=== PATIENT | female | born 1945 | race Caucasian/White ===

== ENCOUNTER 2018-11-18 09:37 | Day surgery (SDC) | payer MEDICARE ==
[~2018-11-18] VITALS: Ht 160 cm; Wt 58.6 kg
[2018-11-18] MEDS ORDERED: SODIUM CHLORIDE 0.9% 1,000 ML IV SCH ×2 (11:05→13:28)
[2018-11-18 11:09] VITALS: BP 152/42
[2018-11-18] MEDS ORDERED: LISI-170 PO (11:27)
[2018-11-18] MEDS ORDERED: FOLI-17 PO (11:27)
[2018-11-18] MEDS ORDERED: OXYC10TA6 PO (11:27)
[2018-11-18] MEDS ORDERED: DENO60DI SC (11:27)
[2018-11-18] MEDS ORDERED: ASCO10004 PO (11:27)
[2018-11-18] MEDS ORDERED: TEMA15CA PO (11:27)
[2018-11-18] MEDS ORDERED: METH25VI62 IM (11:27)
[2018-11-18] MEDS ORDERED: CLIN300C8 PO (11:27)
[2018-11-18] MEDS ORDERED: PRED10TA14 PO (11:27)
[2018-11-18] MEDS ORDERED: AMIT10TA PO (11:27)
[2018-11-18] MEDS ORDERED: CYAN100072 PO (11:27)
[2018-11-18] MEDS ORDERED: CHOL10003 PO (11:27)
[2018-11-18] MEDS ORDERED: HEPARIN 1,000 UNITS/ML, 10ML ONE (12:36)
[2018-11-18] MEDS ORDERED: LIDOCAINE 2%, 20ML ONE (12:36)
[2018-11-18] MEDS ORDERED: MIDAZOLAM 1 MG/ML, 2ML ONE (12:36)
[2018-11-18] MEDS ORDERED: FENTANYL PF 100 MCG/2ML ONE (12:36)
[2018-11-18] MEDS ORDERED: VERAPAMIL 2.5 MG/ML, 2ML ONE (12:44)
== END 2018-11-18 16:48 | disposition home or self-care (01) ==
LOC: CACL 09:37
PROVIDERS: ATTEND Internal Medicine Cardiovascular Disease
DX: I25.10 Atherosclerotic heart disease of native coronary artery without angina pectoris (principal); I35.0 Nonrheumatic aortic (valve) stenosis; I10 Essential (primary) hypertension; M06.842 Other specified rheumatoid arthritis, left hand; M06.841 Other specified rheumatoid arthritis, right hand; Z88.0 Allergy status to penicillin; Z88.8 Allergy status to other drugs, medicaments and biological substances; Z88.1 Allergy status to other antibiotic agents; Z79.899 Other long term (current) drug therapy; Z79.82 Long term (current) use of aspirin
CPT/HCPCS: 93454; 99156; C1769; C1894; J1644; J2250; J3010; Q9967

== ENCOUNTER 2018-11-30 09:52 | Outpatient (CLI) | payer MEDICARE ==
[~2018-11-30 09:52] MED LIST: AMIT10TA PO; ASCO10004 PO; CHOL10003 PO; CLIN300C8 PO; CYAN100072 PO; DENO60DI SC; FOLI-17 PO; LISI-170 PO; METH25VI62 IM; OXYC10TA6 PO; PRED10TA14 PO; TEMA15CA PO
[2018-11-30] MEDS ORDERED: METOPROLOL 1 MG/ML, 5ML ONE (10:51)
[2018-11-30] MEDS ORDERED: VISIPAQUE 320 MG/ML, 150ML BOTTLE ONE (11:27)
== END 2018-11-30 23:59 | disposition home or self-care (01) ==
LOC: RAD 09:52
PROVIDERS: ATTEND Internal Medicine Cardiovascular Disease
DX: I65.23 Occlusion and stenosis of bilateral carotid arteries (principal); I70.0 Atherosclerosis of aorta; J84.9 Interstitial pulmonary disease, unspecified; I71.4 Abdominal aortic aneurysm, without rupture; M51.36 Other intervertebral disc degeneration, lumbar region; M41.86 Other forms of scoliosis, lumbar region; I10 Essential (primary) hypertension; Z88.0 Allergy status to penicillin; Z88.6 Allergy status to analgesic agent; Z88.5 Allergy status to narcotic agent; Z88.8 Allergy status to other drugs, medicaments and biological substances
CPT/HCPCS: 71275; 74174; 93880; 94010; 94726; 94729; Q9967

== ENCOUNTER 2018-12-20 08:00 | Inpatient (IN) | payer MEDICARE ==
[~2018-12-20] VITALS: Ht 160 cm; Wt 58.6 kg
[2018-12-20] MEDS ORDERED: SODIUM CHLORIDE 0.9% 1,000 ML IV ONE (10:13)
[2018-12-20 10:21] VITALS: BP 151/53
[2018-12-20] MEDS ORDERED: CHLORHEXIDINE 15 ML UDC MM PRN (10:30)
[2018-12-20] MEDS ORDERED: ONDANSETRON 2MG/ML, 2ML IVPush PRN (10:30)
[2018-12-20] MEDS ORDERED: PLEASE ENTER HEIGHT AND WEIGHT MC SCH (10:30)
[2018-12-20 10:36] LABS: BASOPHILS # (AUTO) 0.01 x10^3/uL (0-0.1); BASOPHILS % (AUTO) 0 % (0-1); EOSINOPHILS # (AUTO) 0.13 x10^3/uL (0-0.4); EOSINOPHILS % (AUTO) 2 % (1-7); LYMPHOCYTES # (AUTO) 0.44 x10^3/uL (1-3.4); LYMPHOCYTES % (AUTO) 6 % (22-44); MD NO; MEAN CORPUSCULAR HEMOGLOBIN 34.2 pg (27.0-34.8); MEAN CORPUSCULAR HGB CONC 33.2 g/dL (32.4-35.8); MEAN CORPUSCULAR VOLUME 103.3 fL (80-100); MEAN PLATELET VOLUME 6.5 fL (7.4-10.4); MONOCYTES # (AUTO) 0.12 x10^3/uL (0.2-0.8); MONOCYTES % (AUTO) 2 % (2-9); NEUTROPHILS # (AUTO) 6.61 x10^3/uL (1.8-6.8); NEUTROPHILS % (AUTO) 90 % (42-75); PLATELET COUNT 233 x10^3/uL (130-400); RED BLOOD COUNT 3.04 x10^6/uL (3.82-5.3); RED CELL DISTRIBUTION WIDTH 14.9 % (9.6-15.2)
[2018-12-20 10:42] LABS: INTERNATIONAL NORMALIZED RATIO 0.94 (0.93-1.1); PROTHROMBIN TIME 9.9 Seconds (9.6-11.5)
[2018-12-20 10:44] LABS: ALANINE AMINOTRANSFERASE 12 U/L (12-78); ALBUMIN 3.1 g/dL (3.4-5.0); ANION GAP 10 mmol/L (5-15); CALCIUM 8.4 mg/dL (8.5-10.1); CHLORIDE 110 mmol/L (98-107); CREATININE 0.95 mg/dL (0.55-1.02)
[2018-12-20 10:48] LABS: ALKALINE PHOSPHATASE 65 U/L (45-117); BILIRUBIN,TOTAL 0.4 mg/dL (0.2-1.0); TOTAL PROTEIN 6.3 g/dL (6.4-8.2)
[2018-12-20] MEDS ORDERED: GOLD325C2 PO (11:03)
[2018-12-20] MEDS ORDERED: Iron PO (11:03)
[2018-12-20] MEDS ORDERED: ECHI350C PO (11:03)
[2018-12-20] MEDS ORDERED: ORENCIA IV (11:03)
[2018-12-20] MEDS ORDERED: DOCU-144 PO (11:04)
[2018-12-20] MEDS ORDERED: POLY17PO5 PO (11:04)
[2018-12-20] MEDS ORDERED: FENTANYL PF 250 MCG/5ML ONE (12:02)
[2018-12-20] MEDS ORDERED: ONDANSETRON 2MG/ML, 2ML ONE (12:03)
[2018-12-20] MEDS ORDERED: DEXAMETHASONE 4 MG/ML, 1ML ONE ×2 (12:03→13:14)
[2018-12-20] MEDS ORDERED: ROCURONIUM 10MG/ML,5ML ONE (13:14)
[2018-12-20] MEDS ORDERED: SUCCINYLCHOLINE 20 MG/ML, 10ML ONE (13:14)
[2018-12-20] MEDS ORDERED: FENTANYL PF 100 MCG/2ML ONE (13:17)
[2018-12-20] MEDS: SODIUM CHLORIDE 0.9% 1,000 ML IV SCH ×2 (13:46→23:46)
[2018-12-20] MEDS ORDERED: TEMPLATE NON-FORMULARY MED. (Denosumab (Prolia) 60 MG) SC SCH (14:00)
[2018-12-20] MEDS ORDERED: METHOTREXATE SODIUM IM SCH (14:00)
[2018-12-20] MEDS ORDERED: HYDROCORTISONE 100 MG INJ. IVPush SCH (14:00)
[2018-12-20] MEDS ORDERED: [UNRECOGNIZED DRUG - OTHER] IM SCH (14:00)
[2018-12-20] MEDS ORDERED: CLINDAMYCIN 300 MG CAPSULE PO PRN (14:00)
[2018-12-20] MEDS ORDERED: ORENCIA 750 MG IV SCH (14:00)
[2018-12-20] MEDS ORDERED: CLOPIDOGREL 300 MG TABLET PO ONE (14:00)
[2018-12-20] MEDS ORDERED: LABETALOL 20 MG/4 ML IVPush PRN (14:00)
[2018-12-20] MEDS ORDERED: OXYcodone 5 MG/5 ML ORAL.SOL UDC ONE (14:18)
[2018-12-20] MEDS: hydrALAzine 20 MG/ML, 1ML IVPush PRN ×2 (14:24→15:25)
[2018-12-20] MEDS ORDERED: FENTANYL PF 100 MCG/2ML IV PRN (14:30)
[2018-12-20] MEDS ORDERED: LABETALOL 5 MG/ML SYRINGE IVPush PRN (14:30)
[2018-12-20] MEDS ORDERED: OXYcodone 5 MG/5 ML ORAL.SOL UDC PO PRN (14:30)
[2018-12-20] MEDS ORDERED: CEFAZOLIN 1,000 MG ONE (15:30)
[2018-12-20] MEDS ORDERED: PROPOFOL 10 MG/ML, 20ML ONE (15:30)
[2018-12-20] MEDS: OXYcodone IR 5MG TABLET PO SCH ×2 (15:38→21:31)
[2018-12-20 17:05] VITALS: BP 123/71
[2018-12-20 18:40] VITALS: BP 122/71
[2018-12-20] MEDS: HYDROCORTISONE 100 MG INJ. IVPush SCH (21:07)
[2018-12-20] MEDS: TEMAZEPAM 15 MG CAPSULE PO SCH (21:08)
[2018-12-20] MEDS: AMITRIPTYLINE 10 MG TABLET PO SCH (21:08)
[2018-12-21 00:42] VITALS: BP 133/78
[2018-12-21] MEDS: HYDROCORTISONE 100 MG INJ. IVPush SCH ×3 (04:16→20:42)
[2018-12-21 05:56] LABS: MEAN CORPUSCULAR HEMOGLOBIN 33.3 pg (27.0-34.8); MEAN CORPUSCULAR HGB CONC 33.3 g/dL (32.4-35.8); MEAN CORPUSCULAR VOLUME 99.9 fL (80-100); MEAN PLATELET VOLUME 7.1 fL (7.4-10.4); PLATELET COUNT 184 x10^3/uL (130-400); RED BLOOD COUNT 2.71 x10^6/uL (3.82-5.3); RED CELL DISTRIBUTION WIDTH 15.4 % (9.6-15.2)
[2018-12-21 05:59] LABS: ANION GAP 9 mmol/L (5-15); CALCIUM 8.3 mg/dL (8.5-10.1); CHLORIDE 103 mmol/L (98-107)
[2018-12-21] MEDS: OXYcodone IR 5MG TABLET PO SCH ×3 (06:13→17:38)
[2018-12-21 06:43] LABS: BASOPHILS % (AUTO) 0 % (0-1); EOSINOPHILS % (AUTO) 0 % (1-7); LYMPHOCYTES # (AUTO) 0.44 x10^3/uL (1-3.4); LYMPHOCYTES % (AUTO) 6 % (22-44); MD NO; MONOCYTES % (AUTO) 8 % (2-9); NEUTROPHILS # (AUTO) 6.05 x10^3/uL (1.8-6.8); NEUTROPHILS % (AUTO) 85 % (42-75)
[2018-12-21 06:59] VITALS: BP 150/74
[2018-12-21] MEDS ORDERED: IRON PO SCH (09:00)
[2018-12-21] MEDS ORDERED: GOLDENSEAL PO SCH (09:00)
[2018-12-21] MEDS ORDERED: ECHINACEA PURPUREA AERIAL PO SCH (09:00)
[2018-12-21 09:29] LABS: MICROSCOPIC AUTO
[2018-12-21 09:30] LABS: CULTURE INDICATED? NO
[2018-12-21] MEDS: CLOPIDOGREL 75 MG TABLET PO SCH (10:09)
[2018-12-21] MEDS: CHOLECALCIFEROL 1,000 UNIT TABLET PO SCH (10:09)
[2018-12-21] MEDS: ASPIRIN 81 MG TABLET EC PO SCH (10:09)
[2018-12-21] MEDS: LISINOPRIL 20 MG TABLET PO SCH (10:09)
[2018-12-21] MEDS: POLYETHYLENE GLYCOL 17 GM PACKET PO SCH (10:10)
[2018-12-21] MEDS: DOCUSATE 100 MG CAPSULE PO SCH (10:10)
[2018-12-21] MEDS: ASCORBIC ACID 500 MG TABLET PO SCH (10:10)
[2018-12-21] MEDS: FOLIC ACID 1 MG TABLET PO SCH (10:10)
[2018-12-21] MEDS: CYANOCOBALAMIN 1,000 MCG TABLET PO SCH (10:10)
[2018-12-21] MEDS: SODIUM CHLORIDE 0.9% 1,000 ML IV SCH (10:11)
[2018-12-21 14:03] VITALS: BP 151/72
[2018-12-21] MEDS ORDERED: ONDANSETRON 2MG/ML, 2ML IVPush PRN (14:30)
[2018-12-21 18:49] VITALS: BP 157/80
[2018-12-21] MEDS: AMITRIPTYLINE 10 MG TABLET PO SCH (20:42)
[2018-12-21] MEDS: TEMAZEPAM 15 MG CAPSULE PO SCH (20:42)
[2018-12-22 00:27] VITALS: BP 158/80
[2018-12-22] MEDS: OXYcodone IR 5MG TABLET PO SCH ×3 (00:34→11:23)
[2018-12-22 00:39] VITALS: BP 155/75
[2018-12-22 02:03] LABS: BASOPHILS % (AUTO) 0 % (0-1); EOSINOPHILS % (AUTO) 0 % (1-7); LYMPHOCYTES # (AUTO) 0.44 x10^3/uL (1-3.4); LYMPHOCYTES % (AUTO) 6 % (22-44); MD NO; MEAN CORPUSCULAR HEMOGLOBIN 33.4 pg (27.0-34.8); MEAN CORPUSCULAR HGB CONC 32.7 g/dL (32.4-35.8); MEAN CORPUSCULAR VOLUME 102.1 fL (80-100); MEAN PLATELET VOLUME 7.6 fL (7.4-10.4); MONOCYTES # (AUTO) 0.32 x10^3/uL (0.2-0.8); MONOCYTES % (AUTO) 4 % (2-9); NEUTROPHILS # (AUTO) 6.61 x10^3/uL (1.8-6.8); NEUTROPHILS % (AUTO) 90 % (42-75); PLATELET COUNT 178 x10^3/uL (130-400); RED BLOOD COUNT 2.53 x10^6/uL (3.82-5.3); RED CELL DISTRIBUTION WIDTH 15.6 % (9.6-15.2)
[2018-12-22 02:14] LABS: ALANINE AMINOTRANSFERASE 12 U/L (12-78); ALBUMIN 2.5 g/dL (3.4-5.0); ANION GAP 7 mmol/L (5-15); CHLORIDE 107 mmol/L (98-107); CREATININE 0.99 mg/dL (0.55-1.02)
[2018-12-22 02:17] LABS: ALKALINE PHOSPHATASE 47 U/L (45-117); BILIRUBIN,TOTAL 0.5 mg/dL (0.2-1.0); TOTAL PROTEIN 5.3 g/dL (6.4-8.2)
[2018-12-22] MEDS: HYDROCORTISONE 100 MG INJ. IVPush SCH (05:55)
[2018-12-22] MEDS: DOCUSATE 100 MG CAPSULE PO SCH (06:07)
[2018-12-22 07:18] VITALS: BP 148/65
[2018-12-22] MEDS ORDERED: CLOP75TA PO (08:23)
[2018-12-22] MEDS ORDERED: ASPI81TA45 PO (08:23)
[2018-12-22] MEDS: FOLIC ACID 1 MG TABLET PO SCH (08:54)
[2018-12-22] MEDS: ASCORBIC ACID 500 MG TABLET PO SCH (08:54)
[2018-12-22] MEDS: CHOLECALCIFEROL 1,000 UNIT TABLET PO SCH (08:54)
[2018-12-22] MEDS: CLOPIDOGREL 75 MG TABLET PO SCH (08:54)
[2018-12-22] MEDS: LISINOPRIL 20 MG TABLET PO SCH (08:54)
[2018-12-22] MEDS: ASPIRIN 81 MG TABLET EC PO SCH (08:54)
[2018-12-22] MEDS: POLYETHYLENE GLYCOL 17 GM PACKET PO SCH (08:57)
[2018-12-22] MEDS: CYANOCOBALAMIN 1,000 MCG TABLET PO SCH (08:57)
== END 2018-12-22 12:55 | disposition home health service (06) | DRG 266 ==
LOC: ORIP 09:13 → CCU 14:02 → 5SO 17:00 → DCLOUNGE 12-22 12:08
PROVIDERS: ADMIT Internal Medicine Cardiovascular Disease; ATTEND Internal Medicine Cardiovascular Disease
PROC: B246ZZ4 Ultrasonography of Right and Left Heart, Transesophageal (ICD-10-PCS; 2018-12-20)
PROC: 02RF38Z Replacement of Aortic Valve with Zooplastic Tissue, Percutaneous Approach (ICD-10-PCS; principal; 2018-12-20 08:00)
PROC: 0T9B70Z Drainage of Bladder with Drainage Device, Via Natural or Artificial Opening (ICD-10-PCS; 2018-12-21)
DX: I35.0 Nonrheumatic aortic (valve) stenosis (principal); Z00.6 Encounter for examination for normal comparison and control in clinical research program; I50.33 Acute on chronic diastolic (congestive) heart failure; I42.9 Cardiomyopathy, unspecified; E46 Unspecified protein-calorie malnutrition; M06.9 Rheumatoid arthritis, unspecified; Z96.653 Presence of artificial knee joint, bilateral; D64.9 Anemia, unspecified; R33.9 Retention of urine, unspecified; K21.9 Gastro-esophageal reflux disease without esophagitis; M81.0 Age-related osteoporosis without current pathological fracture; Z96.642 Presence of left artificial hip joint; E55.9 Vitamin D deficiency, unspecified; Z87.442 Personal history of urinary calculi; Z99.81 Dependence on supplemental oxygen; Z88.0 Allergy status to penicillin; Z88.8 Allergy status to other drugs, medicaments and biological substances; Z88.1 Allergy status to other antibiotic agents; Z90.49 Acquired absence of other specified parts of digestive tract; Z82.49 Family history of ischemic heart disease and other diseases of the circulatory system; Z68.22 Body mass index [BMI] 22.0-22.9, adult
CPT/HCPCS: 33361; 36415; 74022; 80048; 80053; 81001; 83880; 85025; 85347; 85610; 85730; 86850; 86900; 86923; 87081; 92986; 93005; 93306; 93312; 93321; 93325; 93355; C1760; C1769; C1894; G0378; J0690; J1100; J2405; J2704; J3010; J0330; J0360; J1720; J3490; J7030; J7512; Q9967

== ENCOUNTER → 2020-01-24 | Outpatient (CLI) | payer MEDICARE ==
[~2020-01-24] MED LIST changes: +ASPI81TA45 PO; +CLOP75TA PO; +DOCU-144 PO; +ECHI350C PO; +GOLD325C2 PO; +Iron PO; +ORENCIA IV; +POLY17PO5 PO
== END | disposition home or self-care (01) ==
LOC: CFH 13:40
PROVIDERS: ATTEND Internal Medicine Cardiovascular Disease
DX: I08.1 Rheumatic disorders of both mitral and tricuspid valves (principal); M06.9 Rheumatoid arthritis, unspecified; I65.29 Occlusion and stenosis of unspecified carotid artery; Z95.1 Presence of aortocoronary bypass graft
CPT/HCPCS: 93306

== ENCOUNTER 2021-03-04 14:07 | Outpatient (CLI) | payer MEDICARE | END 2021-03-04 23:59 | disposition home or self-care (01) | LOC: CFH 14:07 | PROVIDERS: ATTEND Internal Medicine Cardiovascular Disease | DX: I08.1 Rheumatic disorders of both mitral and tricuspid valves (principal) ==